=== PATIENT | male | born 1955 | race Caucasian/White ===

== ENCOUNTER 2016-12-09 06:45 | Day surgery (SDC) ==
[2016-12-09] MEDS ORDERED: LIDOCAINE 1% 20 ML MDV ID ONE (07:08)
[2016-12-09] MEDS ORDERED: LIDOCAINE 1% 20 ML MDV ONE (07:08)
[2016-12-09] MEDS ORDERED: DIPRIVAN 20 ML VIAL IVP ONE (08:00)
[2016-12-09] MEDS ORDERED: VERSED ONE (08:00)
[2016-12-09 08:58] VITALS: BP 134/79; TEMP 97.6
--- NOTE | 2016-12-09 14:40 | OP ---
INDICATIONS FOR PROCEDURE: 61-year-old gentleman presents for colonoscopy examination. He has a history of adenomatous polyps with last colonoscopy over 3 years ago. MEDICATIONS: SEE ANESTHESIA NOTES. PROCEDURE: COLONOSCOPY WITH SNARE POLYPECTOMY. REPORT: The risks, benefits, alternatives and limitations were discussed in detail with the patient. Informed consent was obtained. After adequate sedation was achieved, digital rectal exam revealed good tone, no masses. The colonoscope was introduced into the rectum and advanced under direct visual guidance to the cecum. The cecum was identified by the appendiceal orifice and IC valve. I then slowly withdrew the scope in a circumferential manner examining the mucosa quite carefully. I looked on the proximal and distal side of folds and flexures as best as possible. I was able to retroflex the scope in the right colon and left colon to increase visualization. In the proximal transverse colon there was a slightly raised 5 or 6 mm sessile polyp that I removed by snare technique. In the descending colon there was a similar polyp that I removed by snare technique. Both of these polyps were retrieved. On retroflex view of the anal canal there was a small nonengorged internal hemorrhoid. The prep was good. The withdrawal time was 13 minutes and 34 seconds. The patient tolerated the procedure well with stable vital signs and pulse oximetry throughout. IMPRESSION: 1. TWO (2) POLYPS REMOVED 2. SMALL NONENGORGED INTERNAL HEMORRHOID RECOMMENDATIONS: 1. High fiber diet. 2. Office visit as needed. 3. Await polyp pathology; if everything is benign as expected without alarming features, I suggest a repeat surveillance examination again in 5 years , sooner if there are signs and symptoms to indicate otherwise. CC: DR. WELLINGTON ALVARADO
== END 2016-12-09 09:08 | disposition home or self-care (01) ==
LOC: SURG 06:45
PROVIDERS: ATTEND Internal Medicine Gastroenterology
DX: Z09 Encounter for follow-up examination after completed treatment for conditions other than malignant neoplasm (principal); Z86.010 Personal history of colon polyps; D12.4 Benign neoplasm of descending colon; D12.3 Benign neoplasm of transverse colon; K64.8 Other hemorrhoids; G47.30 Sleep apnea, unspecified; E11.9 Type 2 diabetes mellitus without complications
CPT/HCPCS: 82962

== ENCOUNTER 2018-01-25 15:56 | Outpatient (CLI) ==
--- NOTE | 2018-01-25 16:40 | DI ---
EXAM: Two views of the right hip. History: Right hip trauma. Findings: No acute fracture or dislocation. The right hip joint space is preserved. Postsurgical a nd degenerative changes within the lower lumbar spine. Evidence of previous hernia repair. Impression: No acute osseous abnormality
--- NOTE | 2018-01-25 16:41 | DI ---
EXAM: Single view of the pelvis. History: Pelvic pain. Findings: No acute fracture or dislocation. Intact bilateral hip joints. Degenerative and postsurg ical changes seen within the lower lumbar spine. Evidence of previous hernia repair. Impression: No acute osseous abnormality
--- NOTE | 2018-01-25 16:46 | DI ---
EXAM: Three views of the lumbar spine. History: Lower back pain. Findings: No acute fracture or subluxation. Grossly intact posterior fusion hardware involving the left side of L5-S1. Severe disc space narrowing at L5-S1. Disc spacer device seen at L4-L5. Promine nt anterior osteophyte at L4-L5. Mild disc space narrowing seen elsewhere. Previous pelvic hernia r epair. Impression: 1. No acute osseous abnormality. 2. Grossly intact hardware.
== END 2018-01-25 15:57 | disposition home or self-care (01) ==
LOC: RAD 15:56
PROVIDERS: ATTEND Internal Medicine
DX: S39.92XA Unspecified injury of lower back, initial encounter (principal); S79.911A Unspecified injury of right hip, initial encounter; S39.93XA Unspecified injury of pelvis, initial encounter; W55.12XA Struck by horse, initial encounter; W19.XXXA Unspecified fall, initial encounter

== ENCOUNTER 2018-06-03 08:00 | Outpatient (RCR) ==
--- NOTE | 2018-05-19 09:02 | RS.OPPTEV2 ---
Date of Note: 05/18/18 Visit #: 1 Date of Evaluation: 05/18/18 Payer Source: Insurance Surgery Performed?: No Treatment Diagnosis: piriformis syndrome History of Condition/Mechanism of Injury:: pt states his pain began 01/2018 after an incident when he was thrown from a horse. Prior Level of Function.....Patient was independent with: ADL's, Self Care, Work /Vocation, Caregiving, Ambulation/Mobility, Community Integration/Access Functional Limitations: Sleep, Bending, Squatting, Ambulation, Community Access/ Integration Current Subjective/complaints:: pt states that his pain is primarily on L side radiating into LLE. States he has also seen a chiropractor. Treatment Side (optional): Left *Precautions: n/a Medical History Medical History: Hypertension, Diabetes, Arthritis Surgical History: Lumbar Spine, Cholecystectomy, CABG Surgical History Comments:: hernia repair Smoking Status: Never smoker Hx Home Medications: toprol, crestor, aspirin, enbrel, ativan Patient's Goals: decrease pain Pain Assessment - Pain Description Pain Location: L lumbar/sacral area radiating into LLE Pain Description: Radiating, Aching Current Pain Intensity: 5 Other Comments regarding Pain:: pain increases if patient sits for long periods of time Functional Outcome Measure LE Functional Scale: 46 - G Codes & Severity Modifier G Codes & Modifier: n/a Source of G Code score: n/a Observation - Observation Inspection: BLE piriformis and hamstring tightness and IT band L worse than R. Posture: Forward Head, Rounded Shoulders, Increased Thoracic Kyphosis, Decreased Lumbar Lordosis Handedness: Right Gait - Gait Pattern Gait Comments: pt amb with slightly flexed posture General Range of Motion: BUE WFL's. BLE WFL's with some pain with hip ROM Muscle Strength: BUE 5/5. RLE 5/5. LLE hip flex 4+/5 knee flex/ext 5/5, ankle Df/PF 5/5 - ROM Lumbar Flexion: Hand reach to Mid-Shins Sidebending to Left: Reach to Lateral Joint Line Sidebending to Right: Reach to Lateral Joint Line Lumbar Spine ROM Limitations: Soft Tissue Tightness, Muscle Weakness, Pain Comments: pt with pain in Lumbar/sacral area side bending to R increases pain. - Strength Trunk Extension: 4- Good- Trunk Flexion: 4 Good Trunk Lateral Flexion: 4- Good- Trunk Rotation: 4- Good- - Special Tests SLR Test: Positive Left Seated Dural Stretch Test: Positive Left Palpation Palpation Findings: Tenderness, Trigger Point, Muscle Guarding Comments:: pt with tenderness and muscle guarding L lower lumbar area with trigger points noted ant to L SI joint. R side of sacrum rotated posteriorly Sensation - Sensation Right Upper Extremity: Intact/Normal Left Upper Extremity: Intact/Normal Right Lower Extremity: Intact/Normal Left Lower Extremity: Impaired (LLE n/t and pain radiating into L L thigh) Balance - Sitting Balance Static Sitting Balance: Normal Dynamic Sitting Balance: Normal - Standing Balance Static Standing Balance: Normal Dynamic Standing Balance: Normal - Treatment Modality: Electrical Stim Unattended Parameters/Method Applied: IFC x 20 mins at 20ma Treatment Area: L lower lumbar Patient Position: Right Sidelying - Heat/Cryotherapy Treatment: Hot Pack Comments:: lumbar Interventions - Exercise/Activities/Manual Therapy Exercises/Activities: pt received piriformis stretch, hamstring stretch, IT band stretch, lower trunk rotation Manual Therapy: n/a HOME EXERCISE PROGRAM: pt given written HEP including piriformis stretch, hamstring stretch, IT band stretch - Charges Timed Code Treatment Minutes: 42 Total Treatment Time: 61 Procedures billed for this date of service:: eval med, estim unattended EVALUATION COMPLEXITY LEVEL EVALUATION COMPLEXITY LEVEL: HISTORY: Medium (DM, HTN, OA), EXAM OF BODY SYSTEMS : Medium (pain, muscle tightness, posture, strength,), CLINICAL PRESENTATION: Medium, CLINICAL DECISION MAKING: Medium Assessment Assessment: pt presents with pain in L lower lumbar area radiating into L thigh. pt with muscle tightness in piriformis, hamstrings, and IT band. Pain increases with sitting. Patient Education: Home Exercise Program, Education of Plan of Care Rehab Potential: Good Short Term Goals Goal #1: pt rate pain < 5/10 at rest Goal to be met by: 06/02/18 Goal #2: pt with decreased piriformis, hamstring tightness LLE equal to RLE Goal to be met by: 06/02/18 Goal #3: pt independent with initial HEP Goal to be met by: 06/02/18 Stack Supervisor Goals Goal #1: pt rate pain <3/10 with activity with no c/o radiating pain into LLE Goal to be met by: 06/11/18 Goal #2: report increased ability to perform normal household duties w less pain Goal to be met by: 06/11/18 Goal #3: Increase hamstring and piriformis flexibility WFL's Goal to be met by: 06/11/18 Plan - Treatment to be Provided Procedures: Therapeutic Exercises, Therapeutic Activity, Manual Therapy, Massage , Patient Education Modalities: Electrical Stimulation, Ultrasound/Phonophoresis, Cryotherapy, Hot Packs - Treatment Plan Frequency: 2 X week Duration: 3 weeks ORDER # VISITS AND/OR THROUGH DATE: 06/11/18 - Treatment Code (1) Piriformis syndrome of left side Code(s): G57.02 - LESION OF SCIATIC NERVE, LEFT LOWER LIMB (2) Low back pain Code(s): M54.5 - LOW BACK PAIN Qualifiers: Chronicity: chronic Back pain laterality: left Sciatica presence: with sciatica Sciatica laterality: sciatica of left side Qualified Code(s): M54.42 - Lumbago with sciatica, left side; G89.29 - Other chronic pain (3) Muscle tightness Code(s): M62.89 - OTHER SPECIFIED DISORDERS OF MUSCLE
--- NOTE | 2018-05-20 10:28 | RS.OPPTDN ---
Subjective Date of Note: 05/20/18 Visit #: 2 Date of Evaluation: 05/18/18 Payer Source: Insurance Treatment Diagnosis: piriformis syndrome Current Subjective/complaints:: Patient reports doing his exercises , feels the therapy is helping.He also went to the chiropractor on Thursday. *Precautions: n/a Pain Assessment - Pain Description Pain Location: lumbar and L hip/LE Pain Description: Radiating, Dull, Aching Current Pain Intensity: 3/10 - Treatment Modality: Electrical Stim Unattended Parameters/Method Applied: 20 mins. IFC to lumbar/hips area,setting @ 18 ( 0- 150 Hz ) Patient Position: Right Sidelying - Heat/Cryotherapy Treatment: Hot Pack (concurrent with e-stim) Interventions - Exercise/Activities/Manual Therapy Exercises/Activities: 25 mins. total of pelvic tilts,SKTC,DKTC,LTR 90/90 hamstring stretches,piriforms stretches. Total minutes of Exercise: 25 Manual Therapy: n/a Total minutes of Manual Therapy: 0 HOME EXERCISE PROGRAM: pt given written HEP including piriformis stretch, hamstring stretch, IT band stretch - Charges Timed Code Treatment Minutes: 45 Total Treatment Time: 45 Procedures billed for this date of service:: hp,e-stim,ex 2 Assessment: Patient has good return demo of exerises.He needs assist with the L piriformis stgretch due to increased tightness.The stretches do not increase pain or elicit sciatic symptoms today.The hamstrings on the L are also tighter than the R today,but he responds well to the stretches.He has no leg length discrepancy at end of session today. Patient Education: Education of diagnosis, Body/Joint mechanics, Home Exercise Program, Home Safety, Activity Modification, Education of Plan of Care Patient demonstrates compliance with HEP?: Yes Short Term Goals Goal #1: pt rate pain < 5/10 at rest Goal to be met by: 06/02/18 Progress towards Goal:: Progressing Goal #2: pt with decreased piriformis, hamstring tightness LLE equal to RLE Goal to be met by: 06/02/18 Progress towards Goal:: Progressing Goal #3: pt independent with initial HEP Goal to be met by: 06/02/18 Progress towards Goal:: Progressing Prison Goals Goal #1: pt rate pain <3/10 with activity with no c/o radiating pain into LLE Goal to be met by: 06/11/18 Goal #2: report increased ability to perform normal household duties w less pain Goal to be met by: 06/11/18 Goal #3: Increase hamstring and piriformis flexibility WFL's Goal to be met by: 06/11/18 Plan PLAN OF CARE EXPIRES ON:: 06/11/18 ORDER # VISITS AND/OR THROUGH DATE: 06/11/18 PLAN: Continue skilled ,utilizing stretching,muscle energy ,strengthening to eliminate LBP and sciatica.
--- NOTE | 2018-05-25 09:59 | RS.OPPTDN ---
Subjective Date of Note: 05/25/18 Visit #: 3 Date of Evaluation: 05/18/18 Payer Source: Insurance Treatment Diagnosis: piriformis syndrome Current Subjective/complaints:: Patient reports no pain this morning,has tightness present in the L lumbar/piriformis area.He reports it is easier to get in/out of the car. *Precautions: n/a Pain Assessment - Pain Description Pain Location: L ulmbar/hip Pain Description: Tightness - Treatment Modality: Electrical Stim Unattended Parameters/Method Applied: 20 mins. IFC @ 18 to lumbar/hips. Patient Position: Right Sidelying (comcurrent with e-stim) - Heat/Cryotherapy Treatment: Hot Pack Interventions - Exercise/Activities/Manual Therapy Exercises/Activities: 20 mins. total of pelvic tilts,SKTC,DKTC,LTR 90/90 hamstring stretches,piriforms stretches. Total minutes of Exercise: 20 Manual Therapy: n/a Total minutes of Manual Therapy: 0 HOME EXERCISE PROGRAM: pt given written HEP including piriformis stretch, hamstring stretch, IT band stretch - Charges Timed Code Treatment Minutes: 40 Total Treatment Time: 40 Procedures billed for this date of service:: hp,e-stim,ex 1 Assessment: Patient improving ,has moderate tightness in the L piriformis area, but the pain is absent today.He responds well to the stretches.He has less frequency and intensity of pain when it is preent.He is now able to transfer with out hesistancy from supine to sit ,then stand. Patient Education: Body/Joint mechanics Patient demonstrates compliance with HEP?: Yes Short Term Goals Goal #1: pt rate pain < 5/10 at rest Goal to be met by: 06/02/18 Progress towards Goal:: Progressing Goal #2: pt with decreased piriformis, hamstring tightness LLE equal to RLE Goal to be met by: 06/02/18 Progress towards Goal:: Progressing Goal #3: pt independent with initial HEP Goal to be met by: 06/02/18 Progress towards Goal:: Progressing [employer] Administrator Goals Goal #1: pt rate pain <3/10 with activity with no c/o radiating pain into LLE Goal to be met by: 06/11/18 Progress towards goal: Progressing Goal #2: report increased ability to perform normal household duties w less pain Goal to be met by: 06/11/18 Progress towards goal: Progressing Goal #3: Increase hamstring and piriformis flexibility WFL's Goal to be met by: 06/11/18 Progress towards goal: Progressing Plan PLAN OF CARE EXPIRES ON:: 06/11/18 ORDER # VISITS AND/OR THROUGH DATE: 06/11/18 PLAN: Cont. PT to return to PLOF,tolerating all ADL's with out pain.
--- NOTE | 2018-05-27 09:17 | RS.OPPTDN ---
Subjective Date of Note: 05/27/18 Visit #: 4 Date of Evaluation: 05/18/18 Payer Source: Insurance Treatment Diagnosis: piriformis syndrome Current Subjective/complaints:: Patient reports increased soreness after stretches done last session ,but no pain this morning.He also reports that yesterday he felt like he had a leg length difference.We will address this today. *Precautions: n/a Pain Assessment - Pain Description Pain Location: low back / hips Current Pain Intensity: 0 - Heat/Cryotherapy Treatment: Hot Pack (20 mins. prior to exercises) Interventions - Exercise/Activities/Manual Therapy Exercises/Activities: 40 mins. total of pelvic tilts,SKTC,DKTC,LTR 90/90 hamstring stretches,SI muscle energy of resisted hip flexion,resisted knee extension in hooklying.Ended session with instruction and return demo of postural pullbacks at 3 different angles of pull,using green theraband. Total minutes of Exercise: 40 Manual Therapy: n/a HOME EXERCISE PROGRAM: pt given written HEP including piriformis stretch, hamstring stretch, IT band stretch - Charges Timed Code Treatment Minutes: 40 Total Treatment Time: 60 Procedures billed for this date of service:: hp,ex 3 Assessment: Patient progressing well,has increased hamstring and piriformis extensibility today.He has minimal leg length discrepancy ,which is easily corrected today with muscle energy techniques.He is tolerating ADL's with less frequent and less intensity.back pain Patient Education: Education of diagnosis, Body/Joint mechanics, Home Exercise Program, Home Safety, Activity Modification, Education of Plan of Care Patient demonstrates compliance with HEP?: Yes Short Term Goals Goal #1: pt rate pain < 5/10 at rest Goal to be met by: 06/02/18 Progress towards Goal:: Partially Met Goal #2: pt with decreased piriformis, hamstring tightness LLE equal to RLE Goal to be met by: 06/02/18 Progress towards Goal:: Progressing Goal #3: pt independent with initial HEP Goal to be met by: 06/02/18 Progress towards Goal:: Partially Met [facility]cf Goals Goal #1: pt rate pain <3/10 with activity with no c/o radiating pain into LLE Goal to be met by: 06/11/18 Progress towards goal: Progressing Goal #2: report increased ability to perform normal household duties w less pain Goal to be met by: 06/11/18 Progress towards goal: Progressing Goal #3: Increase hamstring and piriformis flexibility WFL's Goal to be met by: 06/11/18 Progress towards goal: Progressing Plan PLAN OF CARE EXPIRES ON:: 06/11/18 ORDER # VISITS AND/OR THROUGH DATE: 06/11/18 PLAN: Continue PT to eliminate LBP,return to PLOF.
--- NOTE | 2018-06-01 09:28 | RS.OPPTDN ---
Subjective Date of Note: 06/01/18 Visit #: 6 Number of visits approved by Insurance: NA Date of Evaluation: 05/18/18 Payer Source: Insurance Treatment Diagnosis: piriformis syndrome Current Subjective/complaints:: Reports he feels better,able to do more strenuous activity with minimal back dsicomfort. *Precautions: n/a Pain Assessment - Pain Description Pain Location: lumbar Current Pain Intensity: 0 Other Comments regarding Pain:: occasional "twinge" - Heat/Cryotherapy Treatment: Hot Pack (20 mins. prior to exercises) Interventions - Exercise/Activities/Manual Therapy Exercises/Activities: 25 mins. total of pelvic tilts,SKTC,DKTC,LTR 90/90 hamstring stretches,SI muscle energy of resisted hip flexion,resisted knee extension in hooklying.Patient instructed and gave return demo of contract- relax method for hamstrings. Total minutes of Exercise: 25 Manual Therapy: n/a Total minutes of Manual Therapy: 0 HOME EXERCISE PROGRAM: pt given written HEP including piriformis stretch, hamstring stretch, IT band stretch - Charges Timed Code Treatment Minutes: 25 Total Treatment Time: 45 Procedures billed for this date of service:: hp,ex 2 Assessment: Progressing well,has much improved flexibility in the lumbar /hips , especially the IT band and L piriformis.He is able to do more strenuous ADL's with less intense back pain.He has no pain at rest,very minimal ,intermittent pain with standing activities.He is compliant to HEP. Patient Education: Education of diagnosis, Body/Joint mechanics, Home Exercise Program, Home Safety, Activity Modification, Education of Plan of Care Patient demonstrates compliance with HEP?: Yes Short Term Goals Goal #1: pt rate pain < 5/10 at rest Goal to be met by: 06/02/18 Progress towards Goal:: Met Goal #2: pt with decreased piriformis, hamstring tightness LLE equal to RLE Goal to be met by: 06/02/18 Progress towards Goal:: Partially Met Goal #3: pt independent with initial HEP Goal to be met by: 06/02/18 Progress towards Goal:: Partially Met Intermediate Goals Goal #1: pt rate pain <3/10 with activity with no c/o radiating pain into LLE Goal to be met by: 06/11/18 Progress towards goal: Partially Met Goal #2: report increased ability to perform normal household duties w less pain Goal to be met by: 06/11/18 Progress towards goal: Partially Met Goal #3: Increase hamstring and piriformis flexibility WFL's Goal to be met by: 06/11/18 Progress towards goal: Partially Met Plan Dates of [employer] Law Clerk Goals: 06/11/18 Expiration date of current Insurance Approval:: NA PLAN: Continue PT ,return patient to PLOF.
--- NOTE | 2018-06-03 08:34 | RS.OPPTDC ---
Date of Discharge: 06/03/18 Date of Evaluation: 05/18/18 Number of Visits: 6 Treatment Diagnosis: piriformis syndrome Current Level of Function: Independent in community. Current Complaints/Gains: Pleased with his progress,agrees with D/C plan today. Pain Assessment - Pain Description Pain Location: lumbar when present Pain Description: Tightness Current Pain Intensity: 0 Functional Outcome Measure - G Codes & Severity Modifier G Codes & Modifier: NA Source of G Code score: NA Observation - Observation Posture: Normal Gait - Gait Pattern General Gait Pattern Observation: No Deviations/Normal General Range of Motion: WNL Muscle Strength: 5/5 - Heat/Cryotherapy Treatment: Hot Pack (20 mins. prior to stretches) Interventions - Exercise/Activities/Manual Therapy Exercises/Activities: 20 mins. total of pelvic tilts,SKTC,DKTC,LTR 90/90 hamstring stretches,SI muscle energy of resisted hip flexion,resisted knee extension in hooklying. Total minutes of Exercise: 20 Manual Therapy: n/a Total minutes of Manual Therapy: 0 HOME EXERCISE PROGRAM: pt given written HEP including piriformis stretch, hamstring stretch, IT band stretch - Charges Timed Code Treatment Minutes: 20 Total Treatment Time: 40 Procedures billed for this date of service:: hp,ex Assessment Assessment: Patient has made very good progress,met all STG's and LTG's.He is compliant to HEP.He has no pain today,reports mat repairer stiffness only, which improves as the day progresses. Patient Education: Education of Plan of Care Rehab Potential: Good Short Term Goals Goal #1: pt rate pain < 5/10 at rest Goal to be met by: 06/02/18 Progress towards Goal:: Met Goal #2: pt with decreased piriformis, hamstring tightness LLE equal to RLE Goal to be met by: 06/02/18 Progress towards Goal:: Met Goal #3: pt independent with initial HEP Goal to be met by: 06/02/18 Progress towards Goal:: Met Computer Programmer Goals Goal #1: pt rate pain <3/10 with activity with no c/o radiating pain into LLE Goal to be met by: 06/11/18 Progress towards goal: Met Goal #2: report increased ability to perform normal household duties w less pain Goal to be met by: 06/11/18 Progress towards goal: Met Goal #3: Increase hamstring and piriformis flexibility WFL's Goal to be met by: 06/11/18 Progress towards goal: Met Plan Reason for Discharge:: All Goals Met
== END 2018-06-16 23:59 ==
PROVIDERS: ATTEND Orthopaedic Surgery Orthopaedic Surgery of the Spine
DX: G57.02 Lesion of sciatic nerve, left lower limb (principal); M54.42 Lumbago with sciatica, left side; G89.29 Other chronic pain; M62.89 Other specified disorders of muscle

== ENCOUNTER 2019-01-18 10:33 | Outpatient (CLI) ==
--- NOTE | 2019-01-18 11:30 | DI ---
EXAM: Three views of the left fingers. History: Pain of the left fourth digit. Findings: No acute fracture or dislocation. Mild polyarticular joint space narrowing with small oste ophytes. No abnormal calcifications or radiopaque foreign bodies. Soft tissue swelling of the left fourth digit Impression: 1. No acute osseous abnormality. 2. Mild polyarticular arthritis. 3. Soft tissue swelling of the left fourth digit
== END 2019-01-18 10:34 | disposition home or self-care (01) ==
LOC: RAD 10:33
PROVIDERS: ATTEND Internal Medicine
DX: M79.645 Pain in left finger(s) (principal)

== ENCOUNTER 2019-02-15 09:15 | Emergency (ER) ==
[2019-02-15 09:30] VITALS: BP 188/82; TEMP 97.8; BMI 28.6
[2019-02-15] MEDS ORDERED: ZOFRAN 4 MG/2 ML IVP STA (09:35)
[2019-02-15] MEDS ORDERED: SODIUM CHLORIDE 1,000 ML IV STA (09:35)
[2019-02-15] MEDS ORDERED: TORADOL IVP STA (09:36)
[2019-02-15] MEDS ORDERED: FLOMAX PO STA (09:37)
--- NOTE | 2019-02-15 09:49 | ED.PDOC ---
General ED Provider: Dr. MARCELLA SCHWARZ Chief Complaint: Kidney Stone Stated Complaint: Severe Rt Sided Flank and Rt sided lower abdominal pain; Onset this morning within past 1 hr. Known past hx of Renal stone. Time Seen by Physician: 09:30 Mode of Arrival: Walk-In Information Source: Patient Exam Limitations: No limitations Primary Care Provider: [facility] Nursing and Triage Documentation Reviewed and Agree: Yes Does patient meet sepsis criteria?: No System Inflammatory Response Syndrome: Not Applicable Sepsis Protocol: For patient's 13 years and over: Temp is 96.8 and below OR 101 and greater Pulse >90 BPM Resp >20/minute Acutely Altered Mental Status Are patient's symptoms suggestive of a new infection, such as: -Pneumonia -Skin, Soft Tissue -Endocarditis -UTI -Bone, Joint Infection -Implantable Device -Acute Abdominal Infection -Wound Infection -Meningitis -Blood Stream Catheter Infection -Unknown Complaint Exam - Complaint/Exam Patient Complains of: Reports: Dysuria (Rt sided flank and RLQ Abdominal Pain ) Onset/Duration: This AM Symptoms Are: Still present Timing: Constant Initial Severity: Severe Current Severity: Moderate Location of Pain: Reports: Right, Flank Character: Reports: Colicky, Cramping Aggravating: Reports: Palpation Alleviating: Reports: None Associated Signs and Symptoms: Reports: Back pain, Nausea, Abdominal Pain Related History: Reports: Similar episode Testicular Torsion Risk Factors: Reports: None Surgical Obstruction Risk Factors: Reports: None Related Surgical History: Reports: None Abdominal Findings: Present: CVA Tenderness Differential Diagnoses: Ureteral Calculi Review of Systems - Review Of Systems Constitutional: Reports: No symptoms Eyes: Reports: No symptoms Ears, Nose, Mouth, Throat: Reports: No symptoms Respiratory: Reports: No symptoms Cardiac: Reports: No symptoms GI: Reports: No symptoms : Reports: Frequency, Flank pain Musculoskeletal: Reports: Back pain Skin: Reports: No symptoms Neurological: Reports: No symptoms Endocrine: Reports: No symptoms Hematologic/Lymphatic: Reports: No symptoms All Other Systems: Reviewed and Negative Past Medical History - Past Medical History Previously Healthy: Yes Endocrine: Reports: Dyslipidemia Cardiovascular: Reports: Hypertension Respiratory: Reports: None Hematological: Reports: None Gastrointestinal: Reports: None, GERD Genitourinary: Reports: None Neuro/Psych: Reports: None 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) Cancer: Reports: None - Surgical History General Surgical History: Reports: None - Family History Family History: Reports: None - Social History Smoking Status: Never smoker Hx Substance Use: No Alcohol Screening: Occasionally Physical Exam - Physical Exam Appearance: Well-appearing (but in discomfort from pain) Ill-appearing: None Pain Distress: Moderate Eyes: MATTEO, EOMI, Conjunctiva clear ENT: Ears normal, Nose normal, Oropharynx normal Neck: Supple Respiratory: Airway patent, Breath sounds clear, Breath sounds equal, Respirations nonlabored Cardiovascular: RRR, Pulses normal, No rub, No murmur GI/: Soft, Nontender Musculoskeletal: Normal strength, ROM intact, No edema, No calf tenderness Skin: Warm, Dry, Normal color Neurological: Sensation intact, Motor intact, Reflexes intact, Cranial nerves intact, Alert, Oriented Psychiatric: Affect appropriate, Mood appropriate Critical Care Note - Critical Care Note Total Time (mins): 60 Course - Course Hematology/Chemistry: 02/15/19 09:40 02/15/19 09:40 Orders, Labs, Meds: Lab Review 02/15/19 02/15/19 09:40 09:40 WBC 6.99 RBC 4.81 Hgb 14.6 Hct 42.8 MCV 89.0 MCH 30.4 MCHC 34.1 RDW Coeff of Steven 13.0 Plt Count 165 Immature Gran % (Auto) 0.1 Neut % (Auto) 64.2 Lymph % (Auto) 24.9 [place] % (Auto) 7.3 Eos % (Auto) 2.6 Baso % (Auto) 0.9 Immature Gran # (Auto) 0.0 Neut # (Auto) 4.5 Lymph # (Auto) 1.7 [place] # (Auto) 0.5 Eos # (Auto) 0.2 Baso # (Auto) 0.1 Sodium 140.6 Potassium 4.90 Chloride 107.0 Carbon Dioxide 22.5 Anion Gap 16.00 BUN 12.8 Creatinine 1.15 H Estimated GFR (MDRD) 64.00 BUN/Creatinine Ratio 11.13 Glucose 187.6 H Calcium 8.65 Total Bilirubin 0.68 AST 29.1 ALT 24.2 Alkaline Phosphatase 72.5 Total Protein 6.24 L Albumin 3.90 Globulin 2.34 Albumin/Globulin Ratio 1.66 Orders Category Date Time Status IV [ED IV/MEDIPORT/POWERPORT] .ONCE EMERGENCY 02/15/19 09:34 Active Strain Urine [ED STRAIN URINE] .ONCE EMERGENCY 02/15/19 10:28 Active CBC W/ AUTO DIFF Stat LAB 02/15/19 09:40 Completed CMP [COMPREHENSIVE METABOLIC PANEL] Stat LAB 02/15/19 09:40 Completed HEMOGLOBIN A1C Stat LAB 02/15/19 09:40 Received UA [URINALYSIS C & S IF INDICATED] Stat LAB 02/15/19 10:22 Uncollected 0.9 % Sodium Chloride [Saline Flush] MEDS 02/15/19 09:35 Active 1 syr IVF PRN PRN Ketorolac Tromethamine [Toradol] MEDS 02/15/19 09:36 Discontinued 30 mg IVP ONCE STA Ondansetron HCl/Pf [Zofran 4 mg/2 ml] MEDS 02/15/19 09:35 Discontinued 4 mg IVP ONCE STA Sodium Chloride 0.9% [Sodium Chloride] 1,000 ml MEDS 02/15/19 09:35 Discontinued IV BOLUS Tamsulosin HCl [Flomax] MEDS 02/15/19 09:37 Discontinued 0.4 mg PO ONCE STA CT ABD/PEL WO RENAL STONE PROT Stat RADS 02/15/19 09:33 Completed Medications Generic Name Dose Route Start Last Admin Trade Name Freq PRN Reason Stop Dose Admin Sodium Chloride 1 syr 02/15/19 09:35 02/15/19 09:48 Saline Flush IVF 1 syr PRN PRN Administration To flush IV Discontinued Medications Generic Name Dose Route Start Last Admin Trade Name Freq PRN Reason Stop Dose Admin Sodium Chloride 1,000 mls @ 1,000 mls/hr 02/15/19 09:35 02/15/19 09:53 Sodium Chloride IV 02/15/19 10:34 1,000 mls/hr BOLUS STA Administration Ketorolac Tromethamine 30 mg 02/15/19 09:36 Toradol IVP 02/15/19 09:37 ONCE STA Ondansetron HCl 4 mg 02/15/19 09:35 02/15/19 09:47 Zofran 4 Mg/2 Ml IVP 02/15/19 09:36 4 mg ONCE STA Administration Tamsulosin HCl 0.4 mg 02/15/19 09:37 02/15/19 09:49 Flomax PO 02/15/19 09:38 0.4 mg ONCE STA Administration Vital Signs: Temp Pulse Resp BP Pulse Ox 02/15/19 09:15 97.8 F 63 16 188/82 H 98 Departure - Departure Time of Disposition: 11:00 Disposition: HOME SELF-CARE Discharge Problem: Ureterolithiasis, Hydronephrosis, right, Type II diabetes mellitus Instructions: Ureteral Stones (ED), Hydronephrosis (ED) Condition: Fair Pt referred to PMD for follow-up: Yes (see PCP in next 24-48 hrs for additions ) IPMP verified?: No Additional Instructions: Stay well hydrated Monitor diet Restrict carbs, starches and foods with high glycemic index Follow up pcp in next 24-48 hrs Strain all urine -save stone for analysis Allergies/Adverse Reactions: Allergies No Known Allergies Allergy (Verified 02/15/19 09:19) Home Medications: Ambulatory Orders Aspirin [Aspirin EC] 1 tab PO DAILY 06/20/13 Etanercept [Enbrel] 1 dis.syr IM WEEKLY 06/20/13 Lorazepam [Ativan] 1 tab PO PRN PRN 06/20/13 Metoprolol Succinate [Toprol Xl] 1 tab PO DAILY 06/20/13 Rosuvastatin Calcium [Crestor] 1 tab PO DAILY 06/20/13 Tamsulosin HCl [Flomax] 0.4 mg PO DAILY #5 cap.er.24h 02/15/19 Disposition Discussed With: Patient, Family
--- NOTE | 2019-02-15 10:34 | CT ---
EXAM: CT abdomen pelvis without contrast HISTORY: Severe right flank pain COMPARISON: 11/01/2012 and prior TECHNIQUE: CT abdomen pelvis performed without intravenous contrast. Coronal and sagittal reformatt ed images obtained FINDINGS: 5 mm nodule right lung image 23 is unchanged from 12/20/2010, most consistent with benign etiology. No free air. No acute abnormalities of the bones. Degenerative change in the spine. Pos terior spinal fusion hardware. Old heart top normal in size. Evaluation organ parenchyma limited wi thout contrast. Liver appears normal. Patient status post cholecystectomy. Pancreas unremarkable. Spleen unremarkable. Adrenals unremarkable. Aorta normal in caliber. Mild atherosclerosis. No ly mphadenopathy or ascites. Small fat-containing periumbilical hernia. Small hiatal hernia. Duodenal diverticula. No dilated loops small bowel. Appendix appears normal. Colon unremarkable. Nonspeci fic bilateral perinephric stranding. Multiple bilateral renal calculi measuring up to 3 mm. Mild ri ght hydroureternephrosis secondary to a 4 mm obstructing calculus distal right ureter. No calculi vi sualized in the normal course of the left ureter. Bladder only mildly distended and poorly evaluated , grossly unremarkable. Prostate normal in size. Postsurgical changes anterior pelvic wall. IMPRESSION: 1. Mild right hydroureternephrosis secondary to a 4 mm obstructing calculus distal right ureter. 2. Bilateral nephrolithiasis. 3. Nonspecific bilateral perinephric stranding. 4. Small hiatal hernia. 5. Duodenal diverticula.
== END 2019-02-15 12:10 | disposition home or self-care (01) ==
LOC: ED 09:15
DX: N13.2 Hydronephrosis with renal and ureteral calculous obstruction (principal); E11.9 Type 2 diabetes mellitus without complications; E78.5 Hyperlipidemia, unspecified; I10 Essential (primary) hypertension; Z79.899 Other long term (current) drug therapy; Z87.442 Personal history of urinary calculi
CPT/HCPCS: 36415; 80053; 81001; 83036; 85025; 96361; 96374; 99283